=== PATIENT | female | born 1990 | race Caucasian/White ===

== ENCOUNTER 2016-10-18 14:22 | Inpatient (IN) | payer OTHER ==
[~2016-10-18] VITALS: Ht 167.6 cm; Wt 105.2 kg
[2016-10-18 13:30] VITALS: BP 100/59
[2016-10-18] MEDS ORDERED: HUMULIN N100 U/M1 SC (16:40)
[2016-10-18] MEDS ORDERED: PRENATAL CAPLE1 EACH PO (16:40)
[2016-10-18] MEDS ORDERED: FOLIC ACID0.8 M2 PO (16:40)
[2016-10-18] MEDS ORDERED: PROMETHAZINE 25 MG/ML VIAL IVP PRN (16:45)
[2016-10-18] MEDS ORDERED: IBUPROFEN 800 MG TAB PO PRN (16:45)
[2016-10-18] MEDS ORDERED: METHYLERGONOVINE 0.2 MG/ML AMP IM SCH (16:45)
[2016-10-18] MEDS ORDERED: CARBOPROST 250 MCG/ML AMP IM PRN (16:45)
[2016-10-18] MEDS ORDERED: OXYTOCIN 10 UNITS/ML VIAL IM ONE (16:45)
[2016-10-18] MEDS ORDERED: NALBUPHINE 10 MG/ML AMP IVP PRN (16:45)
[2016-10-18] MEDS ORDERED: AMPICILLIN 2,000 MG in NACL 0.9% 100 ML IV SCH (17:30)
[2016-10-18] MEDS ORDERED: AMPICILLIN 2,000 MG VIAL ONE (17:33)
[2016-10-18] MEDS: LACTATED RINGERS 1,000 ML IV SCH ×3 (17:58→23:36)
[2016-10-18] MEDS ORDERED: CLINDAMYCIN 900 MG/6 ML VIAL IV ONE (18:03)
[2016-10-18] MEDS ORDERED: OXYTOCIN 20 UNITS/LR PREMIX 1,000 ML IV SCH (19:40)
[2016-10-18] MEDS ORDERED: ROPIVACAINE 0.2%/NS PREMIX 250 ML EPI ONE (23:49)
[2016-10-19] MEDS ORDERED: OXYTOCIN 20 UNITS/LR PREMIX 1,000 ML IV ONE (00:21)
[2016-10-19] MEDS ORDERED: CLINDAMYCIN 900 MG/6 ML VIAL IV ONE ×2 (01:56→09:58)
[2016-10-19] MEDS: CLINDAMYCIN 900 MG in DEXTROSE 5% 100 ML IV SCH ×2 (02:02→10:05)
[2016-10-19] MEDS: LACTATED RINGERS 1,000 ML IV SCH ×2 (06:11→10:06)
[2016-10-19] MEDS ORDERED: OXYTOCIN 10 UNITS/ML VIAL ONE (10:19)
[2016-10-19] MEDS ORDERED: METHYLERGONOVINE 0.2 MG/ML AMP IM PRN (10:45)
[2016-10-19] MEDS ORDERED: IBUPROFEN 800 MG TAB PO PRN (10:45)
[2016-10-19] MEDS ORDERED: TEMAZEPAM 15 MG CAP PO PRN (10:45)
[2016-10-19] MEDS ORDERED: MEASLES, MUMPS, AND RUBELLA 1 VIAL SQVAC SCH (10:45)
[2016-10-19] MEDS ORDERED: BENZOCAINE/MENTHOL 20%-0.5% 60 GM CAN TP PRN (10:45)
[2016-10-19] MEDS ORDERED: WITCH HAZEL 40 PAD PACKAGE TP PRN (10:45)
[2016-10-19] MEDS ORDERED: OXYTOCIN 10 UNITS/ML VIAL IM PRN (10:45)
[2016-10-19] MEDS: oxyCODONE/APAP 5/325 MG 1 TAB TAB PO PRN ×2 (15:45→22:45)
[2016-10-19] MEDS ORDERED: DOCUSATE SOD/SENNA 50/8.6 MG 1 TAB PO SCH (21:00)
[2016-10-20] MEDS: oxyCODONE/APAP 5/325 MG 1 TAB TAB PO PRN (05:36)
--- NOTE | 2016-10-20 10:04 | NUR ---
PATIENT HAS BEEN SCREENED AND CATEGORIZED LOW NUTRITION RISK. PATIENT WILL BE SEEN WITHIN 7 DAYS OF ADMISSION. 10/25/[address]
[2016-10-20] MEDS: HYDROcodone/APAP 5/325 MG 1 TAB TAB PO PRN ×3 (10:44→23:34)
[2016-10-21] MEDS: HYDROcodone/APAP 5/325 MG 1 TAB TAB PO PRN (08:11)
[2016-10-21] MEDS ORDERED: MOTRIN600 MG PO (13:26)
== END 2016-10-21 17:05 | disposition home or self-care (01) | DRG 560 ==
LOC: MLD 14:22 → OBSVTOIN 16:15 → MFCC 10-19 13:45
PROVIDERS: ADMIT Obstetrics & Gynecology; ATTEND Obstetrics & Gynecology
PROC: 10E0XZZ Delivery of Products of Conception, External Approach (ICD-10-PCS; principal; 2016-10-18)
PROC: 00HU33Z Insertion of Infusion Device into Spinal Canal, Percutaneous Approach (ICD-10-PCS; 2016-10-18)
PROC: 3E0R3CZ (ICD-10-PCS; 2016-10-18)
DX: O24.02 Pre-existing type 1 diabetes mellitus, in childbirth (principal); E66.01 Morbid (severe) obesity due to excess calories; E10.9 Type 1 diabetes mellitus without complications; O99.214 Obesity complicating childbirth; J45.909 Unspecified asthma, uncomplicated; O75.89 Other specified complications of labor and delivery; Z88.0 Allergy status to penicillin; Z37.0 Single live birth; Z3A.39 39 weeks gestation of pregnancy; Z88.2 Allergy status to sulfonamides; Z88.8 Allergy status to other drugs, medicaments and biological substances; Z68.37 Body mass index [BMI] 37.0-37.9, adult; Z79.4 Long term (current) use of insulin
CPT/HCPCS: G0378 ×2